=== PATIENT | female | born 1940 ===

== ENCOUNTER 2017-08-12 08:56 | Outpatient (CLI) | payer OTHER ==
[~2017-08-12 08:56] MED LIST: CAPTOPRIL25 MG PO; FLOVENT 110MCG7.9 GM IH; HUMALOG100 U/ML SQ; LIPITOR20 MG PO; PROVENTIL HFA6.7 GM IH; SYNTHROID112 MCG PO
== END 2017-08-12 09:11 | disposition home or self-care (01) ==
LOC: RAD 08:56
DX: R91.1 Solitary pulmonary nodule (principal); J44.1 Chronic obstructive pulmonary disease with (acute) exacerbation

== ENCOUNTER 2019-06-27 15:24 | Emergency (ER) | payer OTHER ==
[~2019-06-27] VITALS: Ht 154.9 cm; Wt 59.4 kg
[2019-06-27] MEDS ORDERED: ASPIR 8181 MG (15:36)
[2019-06-27] MEDS ORDERED: DILTIAZEM ER120 M2 (15:36)
[2019-06-27] MEDS ORDERED: ACID REDUCER20 M1 (15:36)
[2019-06-27] MEDS ORDERED: AVAPRO75 MG (15:37)
[2019-06-27] MEDS ORDERED: LANTUS SOL100 UNIT/1 (15:38)
== END 2019-06-27 23:54 | disposition home or self-care (01) ==
LOC: ER 15:24
DX: J06.9 Acute upper respiratory infection, unspecified (principal)

== ENCOUNTER 2023-01-15 18:34 | Emergency (ER) | payer OTHER ==
[~2023-01-15] VITALS: Ht 154.9 cm; Wt 51.7 kg
[~2023-01-15 18:34] MED LIST changes: +ACID REDUCER20 M1; +ASPIR 8181 MG; +AVAPRO75 MG; +DILTIAZEM ER120 M2; +LANTUS SOL100 UNIT/1
== END 2023-01-15 20:22 | disposition home or self-care (01) ==
LOC: ER 18:34
DX: I10 Essential (primary) hypertension (principal); E11.9 Type 2 diabetes mellitus without complications; Z79.4 Long term (current) use of insulin; Z88.8 Allergy status to other drugs, medicaments and biological substances; Z91.013 Allergy to seafood

== ENCOUNTER 2023-01-25 09:42 | Emergency (ER) | payer OTHER ==
[~2023-01-25] VITALS: Ht 152.4 cm; Wt 51.3 kg
== END 2023-01-25 13:30 | disposition home or self-care (01) ==
LOC: ER 09:42
DX: F41.8 Other specified anxiety disorders (principal); Z88.8 Allergy status to other drugs, medicaments and biological substances; Z91.013 Allergy to seafood

== ENCOUNTER 2023-02-08 12:16 | Outpatient (CLI) | payer OTHER | END 2023-02-08 12:24 | disposition home or self-care (01) | LOC: RAD 12:16 | PROVIDERS: ATTEND Internal Medicine Rheumatology | DX: I10 Essential (primary) hypertension (principal); M54.6 Pain in thoracic spine; M54.2 Cervicalgia; M47.812 Spondylosis without myelopathy or radiculopathy, cervical region; M47.814 Spondylosis without myelopathy or radiculopathy, thoracic region ==

== ENCOUNTER 2023-04-02 12:09 | Outpatient (CLI) | payer OTHER | END 2023-04-02 12:16 | disposition home or self-care (01) | LOC: MRI 12:09 | PROVIDERS: ATTEND Neuromusculoskeletal Medicine & OMM | DX: F03.90 Unspecified dementia, unspecified severity, without behavioral disturbance, psychotic disturbance, mood disturbance, and anxiety (principal); Z88.8 Allergy status to other drugs, medicaments and biological substances; Z91.013 Allergy to seafood | CPT/HCPCS: 70551 ==

== ENCOUNTER 2024-01-09 08:37 | Outpatient (CLI) | payer OTHER | END 2024-01-09 08:48 | disposition home or self-care (01) | LOC: MRI 08:37 | PROVIDERS: ATTEND Neuromusculoskeletal Medicine & OMM | DX: F09 Unspecified mental disorder due to known physiological condition (principal); F03.90 Unspecified dementia, unspecified severity, without behavioral disturbance, psychotic disturbance, mood disturbance, and anxiety | CPT/HCPCS: 70551 ==